=== PATIENT | male | born 1975 | race Caucasian/White ===

== ENCOUNTER 2021-04-16 08:09 | Day surgery (SDC) | payer OTHER ==
[~2021-04-16] VITALS: Ht 182.9 cm; Wt 91.0 kg
[~2021-04-16 08:09] MED LIST: EUTHYROX25 MCG PO
--- NOTE | 2021-04-16 09:53 | NUR ---
04/16/21 0953 Trice Verde 0949 PATIENT ARRIVES TO PACU AWAKE BUT DROWSY. RESP EVEN AND UNLABORED, NC TURNED OFF ON ARRIVAL TO PACU. ROOM AIR SATS >94%. DENIES PAIN OR NAUSEA. PASSING GAS.
--- NOTE | 2021-04-18 12:52 | OR ---
[facility] [address] [place], [place] [address] Signed DATE OF OPERATION: 04/16/2021 SURGEON: Dayday Saunders MD PREOPERATIVE DIAGNOSIS: History of adenomatous polyps, last colonoscopy at [place], [place] four years ago, five to six polyps. POSTOPERATIVE DIAGNOSIS: Single polyp at 40 cm (excised). PROCEDURE: Total colonoscopy to cecum with cold snare polypectomy x1. ANESTHESIA: Intravenous sedation, fentanyl 100 mcg and Versed 11 mg. INDICATIONS: This 45-year-old white man is a patient of ELSA Best. He underwent colonoscopy in [place], [place] approximately four years ago and was found to have 5-6 polyps, half of them adenomatous. He was recommended to undergo colonoscopy in three years. He has no symptoms of bleeding, diarrhea, or constipation and no known family history of colon cancer. He is admitted for surveillance colonoscopy, understand the risks of bleeding, infection, perforation. FINDINGS: The prep was good. Complete colonoscopy was undertaken to the cecum without question. He had a single adenomatous-appearing polyp at 40 cm, which was excised with cold snare technique. The remaining colon was normal. DESCRIPTION OF PROCEDURE: The patient was brought to the endoscopy suite and placed in lateral decubitus position given intravenous sedation to the point of slurred speech and nystagmus. Digital rectal examination was normal. An Olympus video colonoscope was passed into the rectum and manipulated throughout the colon. A small sessile polyp was noted at 40 cm. This was excised with cold snare technique without problem and passed for pathology. The scope was then advanced further ultimately to the cecum. The ileocecal valve and appendiceal orifice were identified as normal. Irrigation was undertaken in the cecum. The scope was then withdrawn and Electronically Signed By: DAYDAY SAUNDERS MD 04/18/21 1252 PATIENT NAME: LELE RENTERIA OPERATIVE REPORT DATE OF : 73 REPORT #: [id number] PHYSICIAN: DAYDAY SAUNDERS MD PCP: CASSIA DOLL NP REPORT IS CONFIDENTIAL AND NOT TO BE RELEASED WITHOUT AUTHORIZATION [facility] [address] [place], [place] [address] Signed examination throughout showed no sign of other abnormality, specifically no polyps, diverticular formation, colitis, or cancer. The polypectomy site at 40 cm had good hemostasis. Retroflexed view of the rectum was normal. The scope was removed, and the patient was taken to the recovery room in good condition. CONCLUDING DIAGNOSIS: Polyps x1 at 40 cm, excised. PLAN: Recommend repeat colonoscopy in 5 years or sooner if clinically indicated. He will return to the ongoing care of ELSA Best. MD MIGUEL Stauffer/MAYCO /[id number] cc: Cassia Doll NP Copies: CASSIA DOLL NP ~ Electronically Signed By: DAYDAY SAUNDERS MD 04/18/21 1252 PATIENT NAME: LELE RENTERIA OPERATIVE REPORT DATE OF : 73 REPORT #: [id number] PHYSICIAN: DAYDAY SAUNDERS MD PCP: CASSIA DOLL NP REPORT IS CONFIDENTIAL AND NOT TO BE RELEASED WITHOUT AUTHORIZATION
== END 2021-04-16 10:30 | disposition home or self-care (01) ==
LOC: OPS 08:09 → DS 08:09 → OPS 09:00 → DS 10:00 → OPS 10:00
PROVIDERS: ATTEND Surgery
PROC: 0DBN8ZZ Excision of Sigmoid Colon, Via Natural or Artificial Opening Endoscopic (ICD-10-PCS; principal; 2021-04-16 09:00)
DX: Z12.11 Encounter for screening for malignant neoplasm of colon (principal); D12.5 Benign neoplasm of sigmoid colon; Z86.010 Personal history of colon polyps
CPT/HCPCS: J0690; J2250; J3010; J7121